=== PATIENT | female | born 1990 | race Caucasian/White ===

== ENCOUNTER → 2017-04-22 10:58 | Outpatient (CLI) | payer OTHER, SELFPAY ==
[2017-04-22 14:46] LABS: Group B Strep DNA By PCR Negative (Negative); Internal Control PASS; Probe Check PASS; Specimen Processing Control PASS
== END ==
PROVIDERS: Visit Provider Obstetrics & Gynecology
DX: Z36.85 Encounter for antenatal screening for Streptococcus B (principal)
CPT/HCPCS: 87081; 87653

== ENCOUNTER 2017-05-18 07:07 | Inpatient (IN) | payer OTHER, SELFPAY ==
[2017-05-18 07:26] VITALS: BMI 34.6
[2017-05-18] MEDS: Lactated Ringers 1,000 ML 50 ML IV ×3 (07:35→17:21)
[2017-05-18] MEDS: Oxytocin 30 units/NS 500 ml 30 UNITS/500 ML IV.SOLN IV (07:46)
[2017-05-18 07:52] LABS: Hemoglobin 12.7 g/dl (12.0-15.0); Mean Corp Hgb Conc 33.4 g/gl (32-36); Mean Corpuscular Hgb 30.9 pg (27.0-32.0); Mean Corpuscular Volume 92.5 fL (81-99); Mean Platelet Vol. 10.7 fl (6.2-12.0); Platelet Count 190 K/mm3 (150-450); RBC Distribution Width CV 13.3 % (11.6-14.6); RBC Distribution Width SD 44.2 fl (35.1-43.9); Red Blood Count 4.11 M/mm3 (4.2-5.4); White Blood Count 7.9 K/mm3 (4.4-11.0)
[2017-05-18 07:54] LABS: Scan Indicated on CBC? Y/N NO
[2017-05-18] MEDS: fentaNYL-bupivacaine (epidural) 100 ML BAG EPIDURAL ×2 (13:30→18:03)
[2017-05-18] MEDS: Mag Hydrox/Al Hydrox/Simeth 30 ML UDC PO (14:55)
[2017-05-18] MEDS: Amnioinfusion- 0.9% NS 1,000 ML IV.SOLN. 999 ML INTRA-UTER (15:15)
[2017-05-18] MEDS: Acetaminophen 325 MG Tablet PO (17:08)
[2017-05-18] MEDS: Ondansetron 4 MG/2 ML Vial IV (17:16)
--- NOTE | 2017-05-18 19:00 | PCM.OB.VAG ---
- Problem List (1) Spontaneous vertex delivery Status: Acute Vaginal Delivery Maternal Presentation: Elective Induction [id number] ega admitted for elective induction of labor. Uncomplicated . Method of Induction: Pitocin Amniotic Membrane Rupture Type: Artificial Rupture of Membrane time: 0800 Amniotic Fluid Description: Clear Final FRANKIE: 05/19/17 Final FRANKIE Source: US <20 weeks Gestational age: 39 Weeks and 6 Days Date of Procedure: 05/18/17 Pre-Operative Diagnosis: labor Post-Operative Diagnosis: same Surgery/ Procedure Performed: Spontaneous Vaginal Delivery Anesthesiologist: Sharif Potter Type of Anesthesia: Epidural Description of Procedure: Progressed from 6 cm to FD rapidly. With contraction head was delivered without pushing effort. The shoulders and body were delivered easily. Delayed cord clamping was employed. There was an active cry within the first minute of delivery. The cord was clamped and cut. The placenta delivered spontaeously intact with a centrally located 3VC. The uterus contracted well. The cervix, vagina and perineum were intact. Presentation: Vertex Placental Delivery Description: Spontaneous Placenta Disposition: [facility] Percentage of Placenta Abruption: 0 Cord Vessel Description: 3 Vessels Nuchal Cord Compression: Without compression Cord Entanglement: None Drain: Nair to straight drain Estimated Blood Loss: 200cc Infant A gender: Male (1 minute): 9 (5 minute): 9 Episiotomy Description: None Laceration: None Medications given after delivery: IV Pitocin Complications: None
--- NOTE | 2017-05-18 19:07 | DCINST_ITS ---
Discharge Diet: No Restrictions Discharge Activity: Return to Normal Activity, May Drive, May Shower Return to work on:: 07/19/17 May shower in (days): 0 May resume sexual activity in: 4-6 weeks Call your doctor if your incision/area has: Sudden Increased Bleeding, Foul Smelling Discharge Call your doctor if you observe: Fever of 101 or Higher, Inability to urinate, Inability to have a bowel movement, Using more than one pad per hour, Shortness of breath, Chest pain, Calf discomfort, Uncontrolled pain Cleanse incision/area with: Soap & Water Additional Instructions: If you experience any of the following, contact your healthcare provider. * Bleeding that soaks a pad every hour for 2 hours * Fever 100.4 or higher * Unrelieved incision or abdominal pain * Swelling, redness, discharge or bleeding from your incision or episiotomy site * Your incision begins to separate * Problems urinating (including inability to urinate or burning while urinating) . * Visual changes * Severe headache * Flu-like symptoms * Pain or redness in one of both of your breasts * Pain, warmth, tenderness or swelling in your legs, especially the calf area * Frequent nausea and vomiting * Symptoms of depression or anxiety If you experience any of the following, call 911 or go to the nearest Emergency Room. * Chest pain * Problems breathing * Seizure activity * Partial or complete paralysis of a body part, slurred speech, weakness or drooping of the face, or a sudden inability to walk or hold your balance Allergies/Adverse Reactions: Allergies No Known Allergies Allergy (Verified 03/28/14 07:28) Medications to take at Discharge L. Acidophilus/Bifid. Animalis [Probiotic 5 Billion Cell Cap] 1 each PO DAILY Docusate Sodium [Colace] 100 mg PO BID 05/18/17 Famotidine [Pepcid] 20 mg PO DAILY 05/18/17 Ibuprofen [Motrin] 800 mg PO TID PRN PRN #30 tab 05/18/17 Vits [Prenatabs FA ] 1 tablet PO DAILY 05/18/17 The following prescriptions were given: Ibuprofen [Motrin] 800 mg PO TID PRN PRN #30 tab PRN Reason: pain or cramping Please Follow Up With: Doug Casanova MD When: 6 weeks Primary Care Physician: Care Physician,No Primary [Primary Care Provider] - Proposed Discharge Date: 05/20/17
[2017-05-18] MEDS: Oxytocin 30 units/NS 500 ml 30 UNITS/500 ML IV.SOLN 334 UNITS IV (19:42)
[2017-05-18] MEDS: Oxytocin 30 units/NS 500 ml 30 UNITS/500 ML IV.SOLN 167 UNITS IV (20:15)
[2017-05-19] VITALS: BP 77/48; PULSE 63; RESP 15; TEMP 36.9
[2017-05-19] MEDS: Dibucaine 30 GM Tube 1 APPLIC TOPICAL (03:50)
[2017-05-19] MEDS: Ibuprofen 600 MG Tablet PO ×3 (03:51→17:02)
[2017-05-19 03:53] VITALS: BP 76/43; PULSE 68; RESP 15; TEMP 36.4
[2017-05-19 06:00] LABS: Hematocrit 36.7 % (37-47); Hemoglobin 12.4 g/dl (12.0-15.0); Mean Corp Hgb Conc 33.8 g/gl (32-36); Mean Corpuscular Hgb 31.2 pg (27.0-32.0); Mean Corpuscular Volume 92.4 fL (81-99); Mean Platelet Vol. 10.6 fl (6.2-12.0); Platelet Count 179 K/mm3 (150-450); RBC Distribution Width CV 13.2 % (11.6-14.6); RBC Distribution Width SD 44.5 fl (35.1-43.9); Red Blood Count 3.97 M/mm3 (4.2-5.4); White Blood Count 12.8 K/mm3 (4.4-11.0)
[2017-05-19 06:05] LABS: Scan Indicated on CBC? Y/N NO
[2017-05-19 08:35] VITALS: BP 88/52; PULSE 69; RESP 18; TEMP 36.2; O2SAT 97
--- NOTE | 2017-05-19 09:01 | PCM.PN.OB ---
Patient Problems: Active and Suspected Problems Spontaneous vertex delivery (Acute) Subjective: Voiding today after issue with urinary retention last night. Bleeding light. Breast feeding. Some cramping with breast feeding. Objective: Afeb VSS. Hgb stable - Physical Exam General: Alert, Oriented x3, Cooperative, No apparent distress Lungs: Clear to auscultation, Normal air movement Cardiovascular: Regular rate, Regular Rhythm Abdomen: Soft, Non Tender, Non-Distended, - - Fundus firm nontender Extremities: No edema Skin: No rashes Neurological: Neuro grossly intact Psych/Mental Status: Normal Affect Comment: Lochia light Vital Signs Temp Pulse Resp BP Pulse Ox 97.2 F L 69 18 88/52 L 97 05/19/17 08:35 05/19/17 08:35 05/19/17 08:35 05/19/17 08:35 05/19/17 08:35 Oxygen Delivery Method Room Air Weight: 201 lb 11.567 oz Body Mass Index (BMI) 34.6 Intake and Output for Last 24 Hours 05/17/17 05/18/17 05/19/17 23:59 23:59 23:59 Intake Total 1000 / 1000 Output Total 2600 / 2600 600 / 600 Balance -1600 / -1600 -600 / -600 Laboratory Tests Past 24 Hrs 05/19/17 05:40 WBC 12.8 H RBC 3.97 L Hgb 12.4 Hct 36.7 L MCV 92.4 MCH 31.2 MCHC 33.8 RDW 13.2 RDW Differential 44.5 H Plt Count 179 MPV 10.6 Medical Necessity - Tobacco Use Smoking Status: Never smoker Assessment/Plan Active and Suspected Problems Spontaneous vertex delivery (Acute) Doing well after now on PP day#1. Voiding improved today. Would like early discharge this evening if baby cleared by the data processor. Home going instructions and warnings given.
--- NOTE | 2017-05-19 09:04 | PCM.DC.SUM ---
Discharge Date and Diagnosis - Problem List Patient Problems: Active and Suspected Problems Spontaneous vertex delivery (Acute) Date of Admission: 05/18/17 Date of Discharge: 05/19/17 - Primary Discharge Diagnosis Active and Suspected Problems Spontaneous vertex delivery (Acute) Hospital Course and Treatment Consultations 05/18/17 07:10 Consult: Anesthesia Routine Comment: Reason For Exam: labor Operations: None Procedures: - - Pitocin labor induction, epidural, spontaneous vaginal delivery. Summary of Care Provided: The patient is a 26 year old F [admitted for elective induction of labor. Pitocin induction performed with resultant delivery of a live male without complication. Post course only complicated by transient urinary retention necessitating catherization. Discharged home on PP day#1. ] Discharge Diet: No Restrictions Discharge Activity: Return to Normal Activity, May Drive, May Shower Return to work on:: 07/19/17 May shower in (days): 0 May resume sexual activity in: 4-6 weeks Call your doctor if your incision/area has: Sudden Increased Bleeding, Foul Smelling Discharge Call your doctor if you observe: Fever of 101 or Higher, Inability to urinate, Inability to have a bowel movement, Using more than one pad per hour, Shortness of breath, Chest pain, Calf discomfort, Uncontrolled pain Cleanse incision/area with: Soap & Water Home Medications: Medications to take at Discharge L. Acidophilus/Bifid. Animalis [Probiotic 5 Billion Cell Cap] 1 each PO DAILY 03/28/14 Docusate Sodium [Colace] 100 mg PO BID 05/18/17 Famotidine [Pepcid] 20 mg PO DAILY 05/18/17 Ibuprofen [Motrin] 800 mg PO TID PRN PRN #30 tab 05/18/17 Vits [Prenatabs FA ] 1 tablet PO DAILY 05/18/17 Following Prescrptions Were Given to Patient: Ibuprofen [Motrin] 800 mg PO TID PRN PRN #30 tab PRN Reason: pain or cramping Primary Care Physician: Care Physician,No Primary [Primary Care Provider] - Please Follow Up With: Doug Casanova MD When: 6 weeks Disposition: Home Minutes spent on discharge:: 15 Patient Condition:: Good Medical Necessity - Tobacco Use Smoking Status: Never smoker Meaningful Use Info Meaningful Use Diagnoses (Choose all that apply): None applicable
[2017-05-19] MEDS: Docusate Sodium 100 MG Capsule PO (10:46)
[2017-05-19] MEDS: Prenatal Vits Tablet 1 TABLET PO (13:14)
[2017-05-19 13:18] VITALS: BP 98/69; PULSE 72; RESP 18; TEMP 36.6; O2SAT 98
[2017-05-19 15:53] VITALS: BP 117/77; PULSE 73; RESP 18; TEMP 36.4; O2SAT 96
--- NOTE | 2017-05-19 19:02 | NURSING ---
Infant voided small amount prior to circumcision. Talked with patient about assessing infant for a void after circumcision. Mother understands teaching if discharged home tonight.
[2017-05-19 20:50] VITALS: BP 117/77; PULSE 73; RESP 18; TEMP 36.4
== END 2017-05-19 20:50 | disposition home or self-care (01) | DRG 775 ==
PROVIDERS: Admitting Provider Obstetrics & Gynecology; Visit Provider Obstetrics & Gynecology
DX: O80 Encounter for full-term uncomplicated delivery (principal); Z37.0 Single live birth; Z3A.39 39 weeks gestation of pregnancy
CPT/HCPCS: 59025; 59050; 76815; 85027; 86850; 86900; 99218; J7030; J7120; G0378; J2405

== ENCOUNTER → 2017-07-12 10:19 | Outpatient (CLI) | payer OTHER, SELFPAY ==
--- NOTE | 2017-07-12 10:19 | DT_ITS ---
This patient was seen during an EMR downtime July 12, 2017 - July 19, 2017. This patient may have a combination of paper and electronic documentation or all paper documentation. All documentation is viewable within the e-chart portion of [facility] for each patient visit.
[2017-07-18 11:18] LABS: Chlamydia Trachomatis by PCR Negative (Negative); Neisserai gonorrhoeae by PCR Negative (Negative); Probe Check PASS; Sample Adequacy Control PASS; Specimen Processing Control PASS
== END ==
PROVIDERS: Visit Provider Obstetrics & Gynecology
DX: Z11.3 Encounter for screening for infections with a predominantly sexual mode of transmission (principal)
CPT/HCPCS: 87491; 87591

== ENCOUNTER → 2021-12-03 | Outpatient (CLI) | payer OTHER, SELFPAY ==
[2021-12-03 11:02] LABS: T4 Free Direct 0.72 ng/dL (0.76-1.46); Thyroid Stim Hormone (TSH) 1.57 uIU/mL (0.358-3.74)
[2021-12-09 16:21] LABS: HPV APTIMA, High Risk Negative (Negative)
== END | disposition home or self-care (01) ==
LOC: WOBLAB 09:13
PROVIDERS: Visit Provider Obstetrics & Gynecology
DX: Z01.419 Encounter for gynecological examination (general) (routine) without abnormal findings (principal)
CPT/HCPCS: 36415; 84439; 84443; 87624; 88175; G0145

== ENCOUNTER → 2021-12-24 | Outpatient (CLI) | payer OTHER, SELFPAY ==
[2021-12-26 22:06] LABS: Chlamydia By Nucleic Acid AMP Negative (Negative)
[2021-12-26 22:15] LABS: Gonococcus By Nucleic Acid AMP Negative (Negative)
== END | disposition home or self-care (01) ==
LOC: LABSPEC 13:34
PROVIDERS: Visit Provider Obstetrics & Gynecology
DX: Z30.430 Encounter for insertion of intrauterine contraceptive device (principal)
CPT/HCPCS: 87491; 87591